=== PATIENT | female | born 1965 | race Caucasian/White ===

== ENCOUNTER 2017-01-02 14:59 | Emergency (ER) | payer OTHER ==
[2017-01-02 15:21] VITALS: BP 120/61
--- NOTE | 2017-01-02 15:43 | ED Physician Documentation ---
Low Back Pain - HISTORIAN Historian: patient - HPI Stated Complaint: back pain Chief Complaint: Low Back Pain/ Injury History: history of chronic pain: Onset: days ago (2 days ago) Duration: continues in ED Severity: severe Further Comments: yes (Patient states that she has had 3 previous back surgies. started 1994. Has had chronic pain, has appointment with pain specialist, has been seeing [facility] in [place] but is not seeing him any longer. Pain got worse about two days ago, no precipitating factor. Pain is worse with movement. Nothing seems to help with pain. Has been taking Tylenol and gabapentin.) - ROS CONST: no problems - PAST HX Past History: other (disc problems in back) Other History: diabetes Type 2, other (hypothyroidism, Anxiety) Surgeries/Procedures: back surgery (x3) Allergies/Adverse Reactions: Allergies Allergy/AdvReac Type Severity Reaction Status Date / Time aspirin Allergy Verified 01/02/17 15:22 cefaclor [From Ceclor] Allergy Verified 01/02/17 15:22 ketorolac tromethamine Allergy Verified 01/02/17 15:22 [From Toradol] Penicillins Allergy Verified 01/02/17 15:22 Sulfa (Sulfonamide Allergy Verified 01/02/17 15:22 Antibiotics) Home Medications: Ambulatory Orders Medication Instructions Recorded Alprazolam [Xanax] 0.25 mg PO TID 01/02/17 Buspirone HCl [Buspar] 7.5 mg PO BID 01/02/17 Fexofenadine HCl [Hannah] 180 mg PO DAILY 01/02/17 Gabapentin [Neurontin] 600 mg PO TID 01/02/17 Levothyroxine Sodium [Synthroid] 75 mcg PO DAILY 01/02/17 Meloxicam [Mobic] 7.5 mg PO BID #30 tablet 01/02/17 Tramadol HCl [Conzip] 600 mg PO 6XDAY PRN 01/02/17 Tramadol HCl [Ultram] 50 mg PO Q6 PRN #10 tablet 01/02/17 - SOCIAL HX Smoking History: less than 1 pack/day (1/2 ppd) Alcohol Use: none Drug Use: none - FAMILY HX Family History: no significant history - VITAL SIGNS Vital Signs: Vital Signs Temp Pulse Resp BP Pulse Ox 98.8 F 103 H 20 120/61 94 01/02/17 14:59 01/02/17 14:59 01/02/17 14:59 01/02/17 14:59 01/02/17 14:59 - REVIEWED ASSESSMENTS Nursing Assessment Reviewed: Yes Vitals Reviewed: Yes Progress - Progress Progress: Patient refused IV acetaminophen, state that she had to leave before it could be done. Advised of compression fracture seen on x-ray, age indeterminate. ED Results Lab/Radiology - Lab Results Lab Results: Lab Results 01/02/17 16:00 Morphine Screen Negative ng/mL ng/mL (<300) Oxycodone Screen Negative ng/mL ng/mL (<100) Methadone Screen Negative ng/mL ng/mL (<300) POC Urine Barbiturates Negative ng/mL ng/mL (<300) Tricyclic Antidepress Negative ng/mL ng/mL (<300) Phencyclidine Screen Negative ng/mL ng/mL (<25) Amphetamines Screen Negative ng/mL ng/mL (<1000) POC Ur Methamphetamine Negative ng/mL ng/mL (<1000) MDMA Negative ng/mL ng/mL (<500) Benzodiazepines Screen Non negative ng/mL H ng/mL (<300) Cocaine Screen Negative ng/mL ng/mL (<150) U Cannabinoids Screen Negative ng/mL ng/mL (< 50) - Radiology Radiology Impressions: Patient Study Name: GLORY MOROCHO Date: Jan 02, 2017 4:15:20 PM CDT Modality Type: CR Gender: F Description: SPINE : 69 Institution: [facility] Physician: AV CALDERÓN - KIERSTEN Examination: Plain film lumbar spine History: None available Findings: 3 views of the lumbar spine demonstrates anterior fusion of L5/S1. Anterior narrowing of L1: approximately 20%. Remaining vertebral bodies demonstrate normal height. Atherosclerotic disease involving the abdominal aorta and iliac vessels. Impression: Prior L5/S1 fusion. L1 anterior narrowing: Approximately 20%. Correlation with older studies recommended as to determine if this represents an acute compression deformity versus a chronic process. If no old films are available, acuity can be assessed with MRI if clinically warranted. - Orders Orders: ED Orders Category Date Time Status Place IV Lock 1T Care 01/02/17 16:13 Active LUMBAR SPINE XR 2 OR 3 VIEWS [L SPINE 2 OR 3 VIEWS] [ Exams 01/02/17 Completed RAD] Stat BENZODIAZEPINES, QUANT, URINE Routine Lab 01/02/17 16:10 Received Urine drug screen [DRUG SCREEN URINE MEDICAL ONLY] Lab 01/02/17 16:00 Completed Routine Acetaminophen [Ofirmev] Med 01/02/17 16:12 Discontinued 500 mg IV NOW ONE traMADol HCL [Ultram] Med 01/02/17 17:22 Discontinued 100 mg .ROUTE .STK-MED ONE traMADol HCL [Ultram] Med 01/02/17 17:21 Discontinued 100 mg PO NOW ONE Low Back Pain/Injury - Physical Exam General Appearance: alert, moderate distress EENT: no signs of dehydration Neck: non-tender, painless ROM, trachea midline Resp/CVS: chest non-tender, breath sounds nml, heart sounds nml, no resp. distress, lungs clear, reg. rate & rhythm Abdomen: non-tender, no organomegaly, no pulsatile mass Back: vertebral point-tendernes, CVA tenderness (bilateral), other (decrease ROM in all plains). No: muscle spasm Straight Leg Raising: Positive Left (50 degrees), Positive Right (50 degrees) Neuro/Psych: oriented x3, motor nml, reflexes nml, mood/affect nml. No: sensation nml (pain and numbness to the posterior thigh area) Skin: warm/dry, normal color Discharge Clincal Impression: Compression fracture Low back pain Qualifiers: Chronicity: chronic Back pain laterality: bilateral Sciatica presence: with sciatica Sciatica laterality: bilateral sciatica Qualified Code(s): M54.42 - Lumbago with sciatica, left side Prescriptions: Meloxicam [Mobic] 7.5 mg PO BID #30 tablet Tramadol HCl [Ultram] 50 mg PO Q6 PRN #10 tablet PRN Reason: Pain Referrals: Primary Doctor,No [Primary Care Provider] - 2 Days Additional Instructions: Home and rest. It is imperative for you to get a primary care provider established to follow-up with your medical conditions and chronic issues. Try using a cool/warm compress to the back area. Take mobic as directed for pain with food. Supplement with tramadol as needed. Home Medications: Ambulatory Orders Alprazolam [Xanax] 0.25 mg PO TID 01/02/17 Buspirone HCl [Buspar] 7.5 mg PO BID 01/02/17 Fexofenadine HCl [Hannah] 180 mg PO DAILY 01/02/17 Gabapentin [Neurontin] 600 mg PO TID 01/02/17 Levothyroxine Sodium [Synthroid] 75 mcg PO DAILY 01/02/17 Meloxicam [Mobic] 7.5 mg PO BID #30 tablet 01/02/17 Tramadol HCl [Conzip] 600 mg PO 6XDAY PRN 01/02/17 Tramadol HCl [Ultram] 50 mg PO Q6 PRN #10 tablet 01/02/17 Condition: Stable Disposition: 01 HOME, SELF-CARE Decision to Admit: NO Date of Decison to Admit: 01/02/17 Decision Time: 17:24
[2017-01-02 16:10] LABS: AMPHETAMINE NEGATIVE ng/mL (<1000); BARBITURATES NEGATIVE ng/mL (<300); CANNABINOIDS NEGATIVE ng/mL (< 50); COCAINE NEGATIVE ng/mL (<150); METHAMPHETAMINE NEGATIVE ng/mL (<1000); METHYLENEDIOXYMETHAMPHETAMINE NEGATIVE ng/mL (<500); MORPHINE NEGATIVE ng/mL (<300)
[2017-01-02] MEDS ORDERED: ACETAMINOPHEN 1,000 MG/100 ML INJ IV ONE (16:12)
--- NOTE | 2017-01-02 16:47 | Diagnostic Imaging Report ---
[facility] [address] [facility].[address] [id number] Report Submission Date: Jan 02, 2017 4:42:16 PM CDT Patient Study Name: GLORY MOROCHO Date: Jan 02, 2017 4:15:20 PM CDT Modality Type: CR Gender: F Description: SPINE : 69 Institution: [facility] Physician: AV CALDERÓN Examination: Plain film lumbar spine History: None available Findings: 3 views of the lumbar spine demonstrates anterior fusion of L5/S1. Anterior narrowing of L1: approximately 20%. Remaining vertebral bodies demonstrate normal height. Atherosclerotic disease involving the abdominal aorta and iliac vessels. Impression: Prior L5/S1 fusion. L1 anterior narrowing: Approximately 20%. Correlation with older studies recommended as to determine if this represents an acute compression deformity versus a chronic process. If no old films are available, acuity can be assessed with MRI if clinically warranted. Electronically signed on Jan 02, 2017 4:42:16 PM CDT by: Jonas POZO
[2017-01-02] MEDS ORDERED: traMADol HCL 50 MG TABLET PO ONE (17:21)
[2017-01-02] MEDS ORDERED: traMADol HCL 50 MG TABLET ONE (17:22)
== END 2017-01-02 17:56 | disposition home or self-care (01) ==
LOC: ED 14:59
DX: M48.50XA Collapsed vertebra, not elsewhere classified, site unspecified, initial encounter for fracture (principal); M54.42 Lumbago with sciatica, left side
CPT/HCPCS: 72100; 80377; 99283; G0481; S1016